=== PATIENT | female | born 1985 | race Caucasian/White ===

== ENCOUNTER 2016-05-31 16:33 | Emergency (ER) | payer OTHER ==
[~2016-05-31] VITALS: Ht 175.3 cm; Wt 122.7 kg
[2016-05-31 16:45] VITALS: BP 133/92; PULSE 94; RESP 16; O2SAT 84
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
[2016-05-31 19:16] LABS: BASOPHILS % (AUTO) 0.5 % (0-3); EOSINOPHILS % (AUTO) 2.4 % (0-5); MONOCYTES % (AUTO) 7.9 % (4-12); Mean Corpuscular Hemoglobin 29.1 pg (27.0-35.0); Mean Corpuscular Volume 84.2 fL (81-100); NEUTROPHILS % (AUTO) 55.1 % (40-74); Platelet Count 318 bil/L (150-400)
--- NOTE | 2016-05-31 21:26 | NUR ---
Behavior Pt resting quietly. Offered fluids/bathroom. Pt refused. S.O in and out of room frequently to provide support.
[2016-05-31 21:39] VITALS: BP 107/79; PULSE 73; RESP 20; O2SAT 98
[2016-05-31] MEDS ORDERED: SERT100T9 PO (21:44)
[2016-05-31] MEDS ORDERED: TRAZ-115 PO ×3 (21:48)
[2016-05-31] MEDS ORDERED: FAMO40TA6 PO (21:48)
[2016-05-31] MEDS ORDERED: LAMO100T2 PO (21:48)
[2016-05-31] MEDS ORDERED: PRAZ5CAP3 PO (21:51)
[2016-05-31] MEDS ORDERED: QUET300T44 PO (21:51)
--- NOTE | 2016-05-31 21:51 | NUR ---
Med Rec Med Rec completed using pt's bubble tablet medication list
[2016-06-01 03:45] VITALS: BP 100/59; PULSE 72; RESP 20; O2SAT 96
[2016-06-01 05:34] VITALS: BP 100/55; PULSE 71; RESP 18; O2SAT 97
== END 2016-06-01 06:02 | disposition other institution (70) ==
LOC: SED 16:33
DX: F32.9 Major depressive disorder, single episode, unspecified (principal); R45.851 Suicidal ideations; J45.909 Unspecified asthma, uncomplicated; Z88.5 Allergy status to narcotic agent

== ENCOUNTER 2016-06-04 19:04 | Emergency (ER) | payer OTHER ==
[~2016-06-04] VITALS: Ht 175.3 cm; Wt 98.2 kg
[~2016-06-04 19:04] MED LIST: FAMO40TA6 PO; LAMO100T2 PO; PRAZ5CAP3 PO; QUET300T44 PO; SERT100T9 PO; TRAZ-115 PO
[2016-06-04 19:25] VITALS: BP 110/76; PULSE 99; RESP 24; O2SAT 99
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
[2016-06-04 20:39] LABS: BASOPHILS % (AUTO) 0.6 % (0-3); EOSINOPHILS % (AUTO) 1.6 % (0-5); MONOCYTES % (AUTO) 8.9 % (4-12); Mean Corpuscular Hemoglobin 29.1 pg (27.0-35.0); Mean Corpuscular Volume 83.6 fL (81-100); NEUTROPHILS % (AUTO) 51.4 % (40-74); Platelet Count 335 bil/L (150-400)
[2016-06-04 21:33] LABS: APPEARANCE,URINE HAZY (CLEAR,HAZY); COLOR,URINE BLOODY (YELLOW); OCCULT BLOOD,URINE LARGE (NEGATIVE)
[2016-06-04 21:34] LABS: UROBILINOGEN,URINE NORMAL (NORMAL)
[2016-06-04 23:04] VITALS: BP 128/88; PULSE 73; RESP 16; O2SAT 97
[2016-06-04] MEDS ORDERED: _LORazepam 1 mg Tablet PO PRN (23:20)
[2016-06-04 23:57] VITALS: BP 109/76; PULSE 76; RESP 16; O2SAT 96
== END 2016-06-04 23:58 | disposition home or self-care (01) ==
LOC: SED 19:04
DX: T88.7XXA Unspecified adverse effect of drug or medicament, initial encounter (principal); X58.XXXA Exposure to other specified factors, initial encounter; Y92.9 Unspecified place or not applicable; Y93.9 Activity, unspecified; Y99.9 Unspecified external cause status; N39.0 Urinary tract infection, site not specified; R45.1 Restlessness and agitation; R11.2 Nausea with vomiting, unspecified; R51 Headache; J45.909 Unspecified asthma, uncomplicated; F31.9 Bipolar disorder, unspecified; F60.3 Borderline personality disorder; Z88.5 Allergy status to narcotic agent
CPT/HCPCS: 36415; 80053; 81000; 82550; 84443; 84702; 85025; 87086; 93005; 96372; 99285; J1200; J2060

== ENCOUNTER 2017-01-29 16:41 | Inpatient (IN) | payer MEDICAID, OTHER ==
[~2017-01-29] VITALS: Ht 175.3 cm; Wt 106.8 kg
[2017-01-29 16:56] VITALS: BP 133/69; PULSE 84; RESP 18; O2SAT 100
[2017-01-29 17:57] LABS: BASOPHILS % (AUTO) 0.4 % (0-3); MONOCYTES % (AUTO) 6.4 % (4-12); Mean Corpuscular Hemoglobin 30.1 pg (27.0-35.0); Mean Corpuscular Volume 87.8 fL (81-100); NEUTROPHILS % (AUTO) 64.7 % (40-74); Platelet Count 261 bil/L (150-400)
--- NOTE | 2017-01-29 18:40 | ED.REPORT ---
HPI-Psychiatric Illness Date of Service Jan 29, 2017 ED Provider: Sathya Limon DO This is a 31-year-old female with history of bipolar disorder and depression who was sent by her therapist to the emergency department for suicidal ideation. Patient states she broke up with her girlfriend 3 days ago and has been feeling suicidal since then. She notes that within the last couple of days she has been banging her head into mirrors as a means of harming herself. She also has plan to overdose on her medications. She reports drinking half a bottle of vodka 5 days a week for the last 3 weeks. She also notes smoking pot. She mentioned she had 4 psychiatric admissions in the past for suicidal ideation. She currently has a headache, 4 out of 10 and right hand pain from banging her hand into a mirror. She denies homicidal ideation. She currently denies any nausea, vomiting, chest pain, shortness of breath, dysuria, vision changes or hearing loss. Nursing Notes Stated Complaint: SUICIDAL Chief Complaint: Psychiatric Complaint Nursing Notes Reviewed: Yes Allergies: Coded Allergies: crab (Verified Allergy, Severe, 01/29/17) Scheduled Famotidine (Famotidine) 40 Mg Tablet 40 MG PO BID Lamotrigine (Lamotrigine) 100 Mg Tablet 100 MG PO DAILY Prazosin (Prazosin) 5 Mg Capsule 5 MG PO HS Quetiapine Fumarate (Quetiapine Fumarate) 300 Mg Tablet 600 MG PO HS Sertraline HCl (Sertraline) 100 Mg Tablet 200 MG PO DAILY Trazodone (Trazodone) 50 Mg Tablet 50 MG PO MORNING Trazodone (Trazodone) 50 Mg Tablet 50 MG PO DAILYWD Trazodone (Trazodone) 50 Mg Tablet 50 MG PO HS General Time Seen by MD: 18:15 Chief Complaint Suicidal ideation Hx Obtained From: Patient Risk-Psychiatric Illness Suicide Risk Stratification Suicide Risk Factors - Adult: : Alcohol use: Previous attempt: Prior psych admission: Substance abuse RF Statements: Risk factors reviewed Past Medical History Past Medical History Asthma Major depressive disorder Suicidal ideation Bipolar disorder Borderline personality disorder Past Surgical History None reported Smoking History Never Smoker Social History Alcohol Use: 3-5 per day (1/2 bottle of vodka) Drug Use: Denies drug use, THC Other Social History: Good social support Ambulatory Status Independent Review of Systems Constitutional: Denies: Chills, Fever Cardiovascular: Denies: Chest pain GI: Reports: Diarrhea, Denies: Abdominal pain, Nausea, Vomiting Psychiatric: Reports: Anxiety, Depression, Stress, Suicidal ideation, Denies: Homicidal ideation Complete sys rev & neg: except as marked. Physical Exam Initial Vital Signs Vital Signs (First) Date Time Temp Pulse Resp B/P Pulse Ox O2 Delivery O2 Flow Rate FiO2 01/29/17 16:56 36.3 84 18 133/69 100 Room Air Initial VS: Reviewed ENT: Mucous membranes moist, Conjunctiva normal, No scleral icterus Neck: Supple, Non-tender, Full range of motion Respiratory: Breath sounds normal, Clear to auscultation, No respiratory distress Cardiovascular: Regular rate & rhythm, Heart sounds normal, Intact distal pulses Abdomen / GI: Soft, Non-tender, No guarding Back: No CVA tenderness Extremities: Vascular intact, Neuro intact, No swelling Skin: Warm, Dry, No cyanosis Neurologic: Oriented X3, Speech NL, CN II - XII intact, Cerebellar NL Psychiatric: Not homicidal, No hallucinations Abnormal Mood/Affect: Positive: Depressed, Flat affect, Hopeless Abnormal Thinking / Perception: Positive: Suicidal, with plan Head / Eyes: PERRL, EOMI, No nystagmus, No periorbital swelling, No scleral icterus, Conjunctiva NL Head / Scalp Abnl: Positive: Scalp tender parietal L, Scalp tender parietal R Skin: Warm, Dry, No swelling Multiple scabs and lesions noted on arms. Small puncture wound on right palm that is tender with half centimeter erythema. Interpretation & Diagnostics Urine test negative Urine dipstick positive for benzodiazepine, marijuana and phencyclidine. Breathalizer - 0 Lab Results Interpretation Result Diagram: 01/29/17 1744 01/29/17 1744 Test 01/29/17 17:44 01/29/17 18:14 White Blood Count 14.1th/mm3 (3.8-10.1) Red Blood Count 4.18mil/mm3 (3.90-5.20) Hemoglobin 12.6g/dL (12.0-15.6) Hematocrit 36.7% (35.0-46.0) Mean Corpuscular Volume 87.8fL (81-100) Mean Corpuscular Hemoglobin 30.1pg (27.0-35.0) Mean Corpuscular Hemoglobin Concent 34.3% (32.0-37.0) Red Cell Distribution Width 13.7% (12.3-15.4) Platelet Count 261bil/L (150-400) Neutrophils (%) (Auto) 64.7% (40-74) Lymphocytes (%) (Auto) 26.2% (14-46) Monocytes (%) (Auto) 6.4% (4-12) Eosinophils (%) (Auto) 2.0% (0-5) Basophils (%) (Auto) 0.4% (0-3) Sodium Level 136mEq/L (134-144) Potassium Level 4.1mEq/L (3.5-5.2) Chloride Level 99mEq/L (97-108) Carbon Dioxide Level 22mmol/L (18-29) Blood Urea Nitrogen 14mg/dL (6-20) Creatinine 0.90mg/dL (0.57-1.00) Estimat Glomerular Filtration Rate 105mL/min (>59) Glucose Level 76mg/dL (60-99) Calcium Level 9.0mg/dL (8.5-10.1) Total Bilirubin 0.4mg/dL (0.0-1.2) Aspartate Amino Transf (AST/SGOT) 35U/L (0-50) Alanine Aminotransferase (ALT/SGPT) 28U/L (0-32) Alkaline Phosphatase 42U/L (25-150) Total Protein 7.1g/dL (6.4-8.4) Albumin 4.1g/dL (3.4-5.0) Thyroid Stimulating Hormone (TSH) 0.917uIU/mL (0.450-4.500) Hold Bentley Top Tube Received (Received) Hold Urine Received (Received) Re-Eval/Medical Decision Med Decision/Clinical Course This is a 31-year-old female with history of bipolar disorder, depression and anxiety who presents to the emergency department for suicidal ideation with plan for the last 3 days. Patient has been harming herself by banging her head into mirrors. She also notes plan to overdose on pills. She has history of suicidal attempt with overdosing on pills. She notes excessive alcohol intake and marijuana use and denies any other illicit drugs. She currently does not have any homicidal ideation or hallucinations. She is neurologically intact on exam. Labs show white blood cell count of 14.1 otherwise CBC, CMP, TSH unremarkable. Urine drug tox positive for marijuana, benzodiazepines and phencyclidine. Phencyclidine is likely a false positive due to psychiatric medications. The patient was apparently at group [facility] today and was referred from there. Patient will require psychiatric evaluation for possible admission. Evaluation to be done in the morning. Discharge & Departure Shift Change Sign-Out Patient Care Transferred: Yes Discussed Complaint(s): Yes Laboratory Evaluation: Lab evaluation discussed Impression: Primary Impression: Suicidal ideation Referrals: Carrie Sofia PA-C (PCP) Care Transferred to: Dr. Lu Care Transferred at: 03:00 Attending Statement I personally took a history of performing exam. I concur with the note above. Our sr. social media & mobile manager was unable to find placement at this time. This young lady is depressed with the plan. She is however voluntary. She will be observed closely in the emergency department pending sr. social media & mobile manager evaluation. She will be signed out to the ceo & founder attending pending disposition. West Schwarz DO Jan 29, 2017 18:39 Sathya Limon DO Jan 30, 2017 02:29
[2017-01-29 20:24] VITALS: BP 96/56; PULSE 59; RESP 16; O2SAT 100
[2017-01-30 06:59] VITALS: BP 112/75; PULSE 18; RESP 18; O2SAT 98
[2017-01-30] MEDS ORDERED: lamoTRIgine 100 mg Tablet PO ONE (07:55)
[2017-01-30] MEDS: Albuterol HFA 60 Puff 8 Gm Inhaler INHALATION PRN (08:37)
[2017-01-30 12:16] VITALS: BP 128/74; PULSE 81; RESP 18; O2SAT 96
[2017-01-30] MEDS ORDERED: Magnesium Hydroxide 10 mL Oral Concentration PO PRN ×2 (14:00)
[2017-01-30] MEDS ORDERED: Alum-Mag Hydrox-Simeth 30 mL Suspension PO PRN ×2 (14:00)
[2017-01-30] MEDS ORDERED: Benzocaine-Menthol Lozenge 2/Pkg PO PRN ×2 (14:00)
--- NOTE | 2017-01-30 14:36 | NUR ---
New Admit Voluntary admit certified for 4 days. Came in feeling suicidal after a breakup with girlfriend. She has a restraining order against another girlfriend, different from her most recent breakup. Plan to OD on ETOH/pills. Hx of MDD, PTSD, anxiety. Allergic to all beans and soybeans. History of depression in father. She has had past hospitalizations, most recent in [place] and two hospitalizations in [place]. Pt had been C/S for 1 1/2 years. She relapsed and has been drinking 1/2 bottle of vodka every 5 days for the past 3 months. Daily marijuana use. Pt signed all admission paperwork and agrees to maintain safety within the hospital setting.
[2017-01-30] MEDS ORDERED: LAMO200T2 PO (16:04)
[2017-01-30] MEDS ORDERED: Trazadone ORAL (16:14)
[2017-01-30] MEDS ORDERED: BECL8.7A6 INHALATION (16:30)
--- NOTE | 2017-01-30 17:05 | NUR ---
Nurses PRN Patient received Vistaril 50mg for anxiety,will assess response.
--- NOTE | 2017-01-30 17:37 | NUR ---
dealership manager/ Counselor S: "I had to come in here because I did not feel safe and I am so alone I have no one here anymore" O:Patient slept 2+ hours last night per self report she stated she didn't have her medications and woke up intermittently through the night. Patient denies S/I and H/I. She also denies auditory and visual hallucinations. Depression is 10/10 and anxiety is 8/10. She reported her mood as very sad. A: Patient is cooperative, depressed, fair insight, fair judgment. P: Follow the care plan, coordinate with out-patient providers.
[2017-01-30] MEDS ORDERED: ALBU18HF INH (17:48)
[2017-01-30] MEDS: lamoTRIgine 100 mg Tablet PO SCH ×2 (20:30→20:44)
--- NOTE | 2017-01-30 21:18 | NUR ---
Observations 00 - 0 Pt arrived on the unit at 1220 and signed all admission paperwork. Pt was shown around the unit and assigned to room 227. Pt affect and mood was anxious, preoccupied and nervous. Pt was pleasant, polite and cooperative when approached. Pt maintained behavior throughout the shift. Pt attended meals in D.R. and ate 100% of her meals. Pt ate snack. Pt attended unit activities and watched a movie with peers. Pt was social with staff and peers. Pt was observed every 15 minutes through the shift as ordered.
[2017-01-30 21:20] VITALS: BP 154/99; PULSE 80; RESP 16
--- NOTE | 2017-01-30 21:45 | NUR ---
Nurses Note Evening Patient has been labile this shift with periods of tearfulness when talking about her dog. She ate well and was social. At 2100 began to experience head and upper body tremors with diaphoresis Her BP at 6050=688/99,P=80. Patient refused Prazosin 1mg. notified and ordered additional medications for patient. Will continue to monitor BP q 4 hourly while awake,encourage adequate fluids and nutrition,improved coping. Addendum: 01/30/17 at 2234 by ROSA KIMBALL RN Amended: Links added.
[2017-01-30] MEDS ORDERED: LORazepam 1 mg Tablet PO ONE (23:25)
--- NOTE | 2017-01-31 04:57 | NUR ---
nursing, nights, 11-7 s/o- has appeared to sleep after 2315 during q 15 minute assessments. a- no apparent distress. p- monitor behavior/emotional state, quality, times and amount of sleep, use and effect of medication. danielle
[2017-01-31] MEDS: Fluticasone 100 mCg Inhaler INHALATION SCH ×2 (08:20→20:22)
[2017-01-31] MEDS: lamoTRIgine 100 mg Tablet PO SCH ×2 (08:21→20:22)
[2017-01-31] MEDS: LORazepam 1 mg Tablet PO SCH ×3 (08:21→20:22)
[2017-01-31] MEDS: Albuterol HFA 60 Puff 8 Gm Inhaler INHALATION PRN (08:44)
[2017-01-31 10:00] VITALS: BP 124/64; PULSE 92; RESP 16
--- NOTE | 2017-01-31 13:30 | NUR ---
[facility] Day Shift Pt maintained behavioral control throughout the shift. Pt affect appears labile, ranging from bright and interactive to flat and isolative. Pt spends most of the shift engaging in unit activities, interacting with peers, resting in her room, and watching TV in the dining room. Pt is pleasant and appropriate with staff and peers when active on the unit. Pt appears to have acclimated to the unit without difficulty. Pt has attended all meals and has eaten approx 100% of all meals.
--- NOTE | 2017-01-31 14:34 | NUR ---
nursing: Pt began the shift somewhat irritable "because they cut 3 of my medications that I'm supposed to have...I'm all shaky and I didn't sleep..." Reviewed her meds with her and listened to some of her story and she was visibly calmer. She has no visible tremor and her VSS. She has been appropriate, and out in the milieu talking with a couple of her peers and watching tv. She acknowledges SI but can contract for safety. She is open to conversation about codependents anonymous and admits, "I'm working on it..."
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
--- NOTE | 2017-01-31 20:05 | NUR ---
Large Animal Veterinarian/Counselor: S/O: Patient slept 6.75 hours last night per staff. Patient denies S/I and H/I. She also denies auditory and visual hallucinations. A: Patient is cooperative, fearful, anxious, dysphoric, isolative. P: Follow the care plan, coordinate with out-patient providers.
--- NOTE | 2017-01-31 20:21 | NUR ---
EVENING NURSE NOTE [id number]: PT has been watching TV at the beginning of the shift. Pt ate dinner and went back to her room. Pt has been polite while interacting with staff and peers. Pt monitored q15 min for safety, location and accountability.
--- NOTE | 2017-01-31 21:49 | NUR ---
behavior: pt. starled when I went to room to give her meds, jumped out of bed, pt. stating she missed group today saying, "it's ok all I want to do is sleep".
[2017-02-01 08:15] VITALS: BP 122/80; PULSE 95; RESP 15
[2017-02-01] MEDS: Fluticasone 100 mCg Inhaler INHALATION SCH ×2 (08:51→20:54)
[2017-02-01] MEDS: LORazepam 1 mg Tablet PO SCH ×3 (08:52→20:55)
[2017-02-01] MEDS: lamoTRIgine 100 mg Tablet PO SCH ×2 (08:52→20:54)
[2017-02-01] MEDS: buPROPion XL 150 mg ER24 Tablet PO SCH (12:17)
--- NOTE | 2017-02-01 13:21 | NUR ---
Day shift nursing note S/O-"I did not sleep." "I had nightmares all night." "They lowered my night time meds." Pt. denied SI or HI and reported her depression and anxiety has decreased gradually since she has been here. She relates well with her peers and has been out of her room for meals, groups and has been watching TV with her peers. She has direct eye contact and a well modulated voice. A-Anxiety/Depression. P-Monitor for safety per protocol. Assess efficacy of meds to decrease target sxs. Teach better coping skills.
--- NOTE | 2017-02-01 16:45 | NUR ---
Observations 0700 to 1900 Pt attended and participated in community meeting. Pt attended recreational activities. Pt ate a snack. Pt is pleasant and cooperative. Pt spends free time watching TV. Pt maintained behavioral control and showed no signs of abnormal behavior. Breakfast: 75%. Lunch: 100%. Staff completed 15 min close observations as ordered.
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
--- NOTE | 2017-02-01 19:52 | NUR ---
Nurses Note Evening Patient has been cheerful,pleasant and social. Patient denied feelings of depression,anxiety or self harm. She watched TV with peers,has been medication compliant without adverse effects. Maintain q 15min. checks for safety,support,encourage improved insight,coping and problem solving. Addendum: 02/01/17 at 2001 by ROSA KIMBALL RN Amended: Links added.
--- NOTE | 2017-02-02 03:34 | NUR ---
Medication Administration: Pt woke and asked for something to sleep. Pt reported having nightmares. Pt received Vistaril 50mg and Trazodone 100mg at 0330. Pt will be monitored for medication efficacy.
--- NOTE | 2017-02-02 05:42 | NUR ---
nursing, nights, 11-7 s/o- has appeared to sleep after 2200 to 0330. received 100 mg of trazodone and 50 mg of vistaril with good effect appearing to sleep after 0400 during q 15 minute assessments. a- interupted sleep, no apparent distress. p- monitor behavior/emotional state, quality, times and amount of sleep, use and effect of medication. danielle
[2017-02-02] MEDS ORDERED: LORazepam 1 mg Tablet PO SCH ×2 (08:30→21:00)
[2017-02-02] MEDS: Fluticasone 100 mCg Inhaler INHALATION SCH ×2 (08:30→20:52)
[2017-02-02] MEDS: buPROPion XL 150 mg ER24 Tablet PO SCH (08:32)
[2017-02-02] MEDS: lamoTRIgine 100 mg Tablet PO SCH ×2 (08:32→20:53)
--- NOTE | 2017-02-02 09:30 | NUR ---
Nursing Days Pt c/o congestion & phlegm this morning. She requested Guaifenesin but none ordered. She thought it might be the milk she had been drinking causing phlegm. She also reports taking Pepcid 40mg BID at home. She plans to talk with the doctor during his rounds this morning. She has been up for breakfast, participated in morning group and currently coloring in the dining room. Taking medications as scheduled. Pleasant and cooperative with care.
[2017-02-02 10:02] VITALS: BP 127/88; PULSE 98; RESP 17
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
[2017-02-02] MEDS ORDERED: guaiFENesin 20 mg/mL 10 mL Syrup PO PRN (14:05)
--- NOTE | 2017-02-02 16:28 | NUR ---
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 A: Patient has been interactive on the unit and has participated in groups. Patient is pleasant and cooperative. P: Follow care plan and coordinate outpatient providers.
--- NOTE | 2017-02-02 17:57 | NUR ---
[facility] Day Shift She took a shower and attended community meeting this morning. Her goal was organize her life outside the facility and to exercise. She rated her mood as a 6 for the day. She has spent a lot of time in the DR and GR. She was helping to sooth another pt by coloring with her and talking to her. She played video games in the GR. She remained patient with 225 most of the day though has gotten very irritated with him as the day goes on. Spent evening watching movie. B: 100 L: 75 D: 100. Pt was observed every 15 min through the shift as ordered.
[2017-02-02] MEDS: Albuterol HFA 60 Puff 8 Gm Inhaler INHALATION PRN (20:56)
--- NOTE | 2017-02-02 21:39 | NUR ---
Nurses Note Evening Patient has been cheerful,upbeat and social with peers. She reported her depression and anxiety to be minimal. She remains medication compliant without adverse effects. Will encourage continued insight into thoughts,feelings and behaviors with improved coping skills. Addendum: 02/02/17 at 2144 by ROSA KIMBALL RN Amended: Links added.
--- NOTE | 2017-02-03 05:54 | NUR ---
Nursing night [id number] Pt slept throughout the night without s/sx of distress; sleeping 7.5 hrs without sleep aids. No behavioral issues, outburst or suicidal ideations. Continue to monitor for emotional well being, behavioral issues, and Q15 min checks for safety. Care continues.
[2017-02-03] MEDS: buPROPion XL 150 mg ER24 Tablet PO SCH (08:11)
[2017-02-03] MEDS: lamoTRIgine 100 mg Tablet PO SCH (08:11)
[2017-02-03] MEDS: Fluticasone 100 mCg Inhaler INHALATION SCH (08:12)
[2017-02-03] MEDS ORDERED: LORazepam 0.5 mg Tablet PO SCH (08:30)
--- NOTE | 2017-02-03 11:04 | PCM.DIMED ---
Discharge Instructions Date of Service Feb 03, 2017 Dates of Hospitalization Jan 30, 2017 at 12:04 Discharge Diagnosis Discharge Diagnosis AXIS I: 1. Major Depression, recurrent 2. Post-traumatic stress disorder. 3. Alcohol use disorder AXIS II: Defer AXIS III Asthma. AXIS IV: Severe. AXIS V: Current Global Assessment of Functioning equal to 50. Medication Instructions Additional med instructions You are being tapered off lorazepam, let your provider know if your anxiety worsens. Test Results Test Results CBC Test 01/29/17 17:44 White Blood Count 14.1th/mm3 (3.8-10.1) Red Blood Count 4.18mil/mm3 (3.90-5.20) Hemoglobin 12.6g/dL (12.0-15.6) Hematocrit 36.7% (35.0-46.0) Mean Corpuscular Volume 87.8fL (81-100) Mean Corpuscular Hemoglobin 30.1pg (27.0-35.0) Mean Corpuscular Hemoglobin Concent 34.3% (32.0-37.0) Red Cell Distribution Width 13.7% (12.3-15.4) Platelet Count 261bil/L (150-400) Neutrophils (%) (Auto) 64.7% (40-74) Lymphocytes (%) (Auto) 26.2% (14-46) Monocytes (%) (Auto) 6.4% (4-12) Eosinophils (%) (Auto) 2.0% (0-5) Basophils (%) (Auto) 0.4% (0-3) CMP Test 01/29/17 17:44 Sodium Level 136mEq/L Potassium Level 4.1mEq/L Chloride Level 99mEq/L Carbon Dioxide Level 22mmol/L Blood Urea Nitrogen 14mg/dL Creatinine 0.90mg/dL Estimat Glomerular Filtration Rate 105mL/min Glucose Level 76mg/dL Calcium Level 9.0mg/dL Total Bilirubin 0.4mg/dL Aspartate Amino Transf (AST/SGOT) 35U/L Alanine Aminotransferase (ALT/SGPT) 28U/L Alkaline Phosphatase 42U/L Total Protein 7.1g/dL Albumin 4.1g/dL Thyroid Stimulating Hormone (TSH) 0.917uIU/mL Hold Bentley Top Tube Received Diet Discharge Diet: No restrictions Activity Discharge Activity: No restrictions Patient Instructions Patient Instructions Should you have any thoughts of harming yourself or others, please call the crisis line, your provider, 911, or go to the nearest Emergency Department. Do not change or discontinue your medications without discussing with your provider. You have been given a prescription for 30 days supply of your new medication Follow-up plan Counselor Yoselyn on 02/05/17 at 4:00pm [address] Kushal Davis on 02/06/17 at 11:00am [facility] [address] [address] Prosper Gutiérrez MD Feb 03, 2017 11:04
[2017-02-03] MEDS ORDERED: BUPR-97 PO (11:16)
[2017-02-03] MEDS ORDERED: MELA5TAB14 PO (11:16)
[2017-02-03] MEDS ORDERED: QUET50TA55 PO (11:16)
[2017-02-03] MEDS ORDERED: HYDR50CA3 PO (11:16)
[2017-02-03] MEDS ORDERED: SERT50TA9 PO (11:16)
[2017-02-03] MEDS ORDERED: LORA-303 PO (11:16)
[2017-02-03] MEDS ORDERED: QUET400T35 PO (11:16)
[2017-02-03 12:47] VITALS: BP 133/91; PULSE 103; RESP 16
--- NOTE | 2017-02-03 13:35 | NUR ---
Discharge Pt left the unit @ 1330 accompanied by her friend. She plans to return home. She denied suicidal thoughts. Reports having an improved mood and feeling hopeful about her future stating "I feel stronger. The fact that I came in on my own for help makes me feel good." She signed all discharge paperwork and acknowledged understanding of date and time of follow up appointments. All belongings returned along with home medications held in pharmacy.
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
--- NOTE | 2017-02-03 17:00 | NUR ---
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 A: Patient has been discharged. Follow up appts. have been made with [facility] in [place]. Patient has been given CBT worksheets, all necessary discharge papers and was confident in her safety plan. P: Follow care plan and coordinate with outpatient providers.
[2017-02-04] MEDS ORDERED: LORazepam 1 mg Tablet PO SCH (21:00)
== END 2017-02-03 13:30 | disposition home or self-care (01) | DRG 885 ==
LOC: SED 16:41 → MHC 01-30 12:04
PROVIDERS: ADMIT Psychiatry & Neurology Psychiatry; ATTEND Psychiatry & Neurology Psychiatry
DX: F33.9 Major depressive disorder, recurrent, unspecified (principal); R45.851 Suicidal ideations; F12.90 Cannabis use, unspecified, uncomplicated; F43.10 Post-traumatic stress disorder, unspecified; F60.3 Borderline personality disorder; J45.909 Unspecified asthma, uncomplicated; Z79.51 Long term (current) use of inhaled steroids